=== PATIENT | male | born 1955 | race Caucasian/White ===

== ENCOUNTER 2017-06-29 19:42 | Emergency (ER) | payer BC ==
--- NOTE | 2017-06-29 19:48 | UC ---
Epistaxis Nasal HPI - HPI Summary HPI Summary: 62 YEAR OLD MALE PRESENTS WITH COMPLAINS OF NASAL LACERATION. - History of Current Complaint Stated Complaint: FACIAL INJURY Time Seen by Provider: 06/29/17 19:46 Hx Obtained From: Patient Onset/Duration: Sudden Onset Timing: Constant Severity Initially: Moderate Severity Currently: Moderate Pain Scale Used: 0-10 Numeric - 5 Aggravating Factor(s): Nasal Trauma - Allergies/Home Medications Allergies/Adverse Reactions: Allergies Allergy/AdvReac Type Severity Reaction Status Date / Time Penicillins Allergy Unknown Unknown Verified 01/16/13 18:09 Reaction Details PMH/Surg Hx/FS Hx/Imm Hx Previously Healthy: Yes - Surgical History Surgical History: Yes Surgery Procedure, Year, and Place: HERNIA REPAIR - Social History Substance Use Type: None Review of Systems Constitutional: Negative Skin: Other - NASAL LACERATION Eyes: Negative ENT: Negative Respiratory: Negative Cardiovascular: Negative Gastrointestinal: Negative Genitourinary: Negative Motor: Negative Neurovascular: Negative Musculoskeletal: Negative Neurological: Negative Psychological: Negative All Other Systems Reviewed And Are Negative: Yes Physical Exam Triage Information Reviewed: Yes Eye Exam: Normal ENT Exam: Normal Dental Exam: Normal Neck exam: Normal Neck: Positive: 1 Respiratory Exam: Normal Cardiovascular Exam: Normal Abdominal Exam: Normal Musculoskeletal Exam: Normal Neurological Exam: Normal Psychological Exam: Normal Skin: Positive: Other - NASAL LACERATION Procedures - Laceration/Wound Repair 1 Location: Other - NOSE Description: Linear Laceration/Wound Explored: clean Closure: SteriStrips - < 2.5 CM Epistaxis Nasal Course/Dx - Differential Dx/Diagnosis Provider Diagnoses: NASAL LACERATION Discharge - Discharge Plan Condition: Stable Disposition: HOME Prescriptions: Sulfamethox/Trimethoprim DS* [Bactrim DS 800/160 TAB*] 1 tab PO BID #20 tab Patient Education Materials: Laceration (ED) Referrals: Michi Munoz MD [Primary Care Provider] -
[2017-06-29] MEDS ORDERED: Tetan/Diph/Pertus SYR(Tdap)* 0.5 ML SYR(BOOSTRIX) use SYR IM ONE (20:01)
[2017-06-29 20:32] VITALS: BP 129/81
== END 2017-06-29 20:15 | disposition home or self-care (01) ==
LOC: UCEAST 19:42
DX: S01.21XA Laceration without foreign body of nose, initial encounter (principal); X58.XXXA Exposure to other specified factors, initial encounter; Y93.9 Activity, unspecified; Y92.9 Unspecified place or not applicable; Z23 Encounter for immunization; Z88.0 Allergy status to penicillin
CPT/HCPCS: 12011; 90715; 99202; G0463

== ENCOUNTER 2019-03-31 07:26 | Emergency (ER) | payer BC ==
[2019-03-31 07:40] VITALS: BP 131/79
[2019-03-31] MEDS ORDERED: Tetracaine 0.5% OPTH.SOL 4 ML* 1 DROP BTL RIGHT EYE ONE (07:46)
[2019-03-31] MEDS ORDERED: Fluorescein Sodium TOPICAL* 1 MG TEST STRIP OPHTHALMIC ONE (07:47)
--- NOTE | 2019-03-31 07:47 | UC ---
UC General HPI - History of Current Complaint Chief Complaint: UCEye Stated Complaint: EYE ISSUE Pain Intensity: 7 - Allergy/Home Medications Allergies/Adverse Reactions: Allergies Allergy/AdvReac Type Severity Reaction Status Date / Time Penicillins Allergy Unknown Verified 03/31/19 07:39 Reaction Details Sulfa (Sulfonamide Allergy Hives Verified 03/31/19 07:39 Antibiotics) dust mites Allergy Unknown Uncoded 03/31/19 07:39 Reaction Details Home Medications: Home Medications Tetrahydrozoline HCl [Eye Drops] 1 drop RIGHT EYE ONCE PRN 03/31/19 [History Confirmed 03/31/19] PMH/Surg Hx/FS Hx/Imm Hx - Surgical History Surgical History: Yes Surgery Procedure, Year, and Place: HERNIA REPAIR - Social History Alcohol Use: Daily Substance Use Type: None Smoking Status (MU): Never Smoked Tobacco - Immunization History Most Recent Tetanus Shot: Pt stated not up to date Physical Exam Vital Signs: Initial Vital Signs Temp 98.2 F 03/31/19 07:32 Pulse 64 03/31/19 07:32 Resp 18 03/31/19 07:32 BP 131/79 03/31/19 07:32 Pulse Ox 98 03/31/19 07:32 Discharge - Discharge Plan Referrals: Michi Munoz MD [Primary Care Provider] -
--- NOTE | 2019-03-31 08:19 | UC ---
Eye Complaint HPI - HPI Summary HPI Summary: 64-year-old male who started having some right sided eye pain a few days ago with watery drainage. He denies getting anything in it however did state " maybe I got something in it but I don't know". Today his eye is more painful and extremely light sensitive. He's not had any recent illness nor fever. He states today the pain from his eye actually is giving him a headache. He is unable to tolerate the lights being on in the room. - History of Current Complaint Chief Complaint: UCEye Stated Complaint: EYE ISSUE Time Seen by Provider: 03/31/19 07:59 Hx Obtained From: Patient Onset/Duration: Gradual Onset Timing: Constant Severity Initially: Mild Severity Currently: Moderate Pain Intensity: 7 Location of Injury: Other Character: Dull, Throbbing Aggravating Factor(s): Light - No injury Alleviating Factor(s): Nothing Associated Signs And Symptoms: Positive: Drainage (Clear) - Eyes are watery. - Allergies/Home Medications Allergies/Adverse Reactions: Allergies Allergy/AdvReac Type Severity Reaction Status Date / Time Penicillins Allergy Unknown Verified 03/31/19 07:39 Reaction Details Sulfa (Sulfonamide Allergy Hives Verified 03/31/19 07:39 Antibiotics) dust mites Allergy Unknown Uncoded 03/31/19 07:39 Reaction Details Home Medications: Home Medications Tetrahydrozoline HCl [Eye Drops] 1 drop RIGHT EYE ONCE PRN 03/31/19 [History Confirmed 03/31/19] PMH/Surg Hx/FS Hx/Imm Hx Previously Healthy: Yes Cardiovascular History: Other - Cardiac arrhythmia Cancer History: Other - Skin cancer - Surgical History Surgical History: Yes Surgery Procedure, Year, and Place: HERNIA REPAIR - Social History Alcohol Use: Daily Substance Use Type: None Smoking Status (MU): Never Smoked Tobacco - Immunization History Most Recent Tetanus Shot: Pt stated not up to date Review of Systems All Other Systems Reviewed And Are Negative: Yes Constitutional: Positive: Negative Eyes: Positive: Blurred Vision, Drainage - Watery drainage, blurred vision mostly because of the watering of his eyes and the eye pain., Eye Redness, Photophobia ENT: Positive: Negative Is Patient Immunocompromised?: No Physical Exam Triage Information Reviewed: Yes Appearance: Well-Appearing, Well-Nourished, Pain Distress - More comfortable with the lights off but with the lights on and he has significant photophobia. Vital Signs: Initial Vital Signs Temp 98.2 F 03/31/19 07:32 Pulse 64 03/31/19 07:32 Resp 18 03/31/19 07:32 BP 131/79 03/31/19 07:32 Pulse Ox 98 03/31/19 07:32 Vital Signs Reviewed: Yes Eyes: Positive: Other: - Right conjunctiva and sclera are injected, eyes are watering, PERRLA, EOMI. ENT: Positive: Hearing grossly normal, Pharynx normal, TMs normal, Uvula midline Psychological Exam: Normal Eye Complaint Course/Dx - Course Course Of Treatment: After instillation of tetracaine the right eye was visualized, the globe is intact, no foreign body was noted using the Wood's lamp. Fluorescein was then instilled and there is some uptake at the 12 o'clock position but it does not appear to be a corneal abrasion. After discussion with Dr. Verdugo, I am referring the patient to Dr. Kimball, [facility], and the patient is to go there from here. No foreign bodies were noted under the eyelids. - Differential Dx/Diagnosis Provider Diagnosis: Acute right eye pain Discharge - Sign-Out/Discharge Documenting (check all that apply): Patient Departure All imaging exams completed and their final reports reviewed: No Studies - Discharge Plan Condition: Fair Disposition: HOME Referrals: Michi Munoz MD [Primary Care Provider] - Additional Instructions: Go to 's office from here. - Billing Disposition and Condition Condition: FAIR Disposition: Home
== END 2019-03-31 08:34 | disposition home or self-care (01) ==
LOC: UCEAST 07:26
DX: H57.11 Ocular pain, right eye (principal); Z88.0 Allergy status to penicillin; Z88.2 Allergy status to sulfonamides
CPT/HCPCS: 99211; A9270-GY; G0463

== ENCOUNTER 2019-04-07 07:09 | Emergency (ER) | payer BC ==
[2019-04-07 07:31] VITALS: BP 102/63
--- NOTE | 2019-04-07 07:57 | ED ---
Influenza-Like Illness - HPI Summary HPI Summary: This patient is a 64-year-old male who presents to the urgent care with chief complaint of having intermittent low-grade fevers. The patient has been having these symptoms for the last 3 days. He denies any year pain, denies any sore throat, denies any cough, denies any shortness of breath, denies any abdominal pain, nausea, vomiting, or diarrhea. Patient denies any dysuria or urinary frequency. He reports that approximately a month and a half he removed the tick from his body which he thinks he was reports in 6-8 hours. Patient went to try to [facility] and he was given 200 mg of doxycycline as a prophylactic treatment. Then he developed an upper respiratory tract infection which she result by itself. Now the patient is complaining of the above symptoms. He also reports occasional joint pain different joints. She has taken Tylenol and the symptoms have improved. He has no other complaints. - History of Current Complaint Chief Complaint: UCGeneralIllness Time Seen by Provider: 04/07/19 07:20 - Allergy/Home Medications Allergies/Adverse Reactions: Allergies Allergy/AdvReac Type Severity Reaction Status Date / Time Penicillins Allergy Unknown Verified 04/07/19 07:31 Reaction Details Sulfa (Sulfonamide Allergy Hives Verified 04/07/19 07:31 Antibiotics) dust mites Allergy Unknown Uncoded 04/07/19 07:31 Reaction Details PMH/Surg Hx/FS Hx/Imm Hx Previously Healthy: Yes Endocrine/Hematology History: Denies: Hx Diabetes, Hx Thyroid Disease Cardiovascular History: Reports: Hx Hypertension Denies: Hx Pacemaker/ICD Respiratory History: Denies: Hx Asthma, Hx Chronic Obstructive Pulmonary Disease (COPD) GI History: Denies: Hx Ulcer Sensory History: Denies: Hx Hearing Aid Psychiatric History: Denies: Hx Panic Disorder - Cancer History Cancer Type, Location and Year: skin cancer - Surgical History Surgical History: None Surgery Procedure, Year, and Place: HERNIA REPAIR Infectious Disease History: No Infectious Disease History: Denies: Hx Hepatitis, Hx Human Immunodeficiency Virus (HIV), Traveled Outside the US in Last 30 Days - Family History Known Family History: Positive: Non-Contributory - Social History Alcohol Use: Daily Substance Use Type: Reports: None Smoking Status (MU): Never Smoked Tobacco Review of Systems Positive: Fever Eyes: Negative ENT: Negative Cardiovascular: Negative Respiratory: Negative Gastrointestinal: Negative Genitourinary: Negative Musculoskeletal: Negative Skin: Negative Neurological: Negative Psychological: Normal All Other Systems Reviewed And Are Negative: Yes Physical Exam - Summary Physical Exam Summary: VITAL SIGNS: Reviewed. GENERAL: Patient is a well developed and nourished male who is lying comfortable in the stretcher. Patient is not in any acute respiratory distress. HEAD AND FACE: No signs of trauma. No ecchymosis, hematomas or skull depressions. No sinus tenderness. EYES: PERRLA, EOMI x 2, No injected conjunctiva, no nystagmus. EARS: Hearing grossly intact. Ear canals and tympanic membranes are within normal limits. MOUTH: Oropharynx within normal limits. NECK: Supple, trachea is midline, no adenopathy, no JVD, no carotid bruit, no c- spine tenderness, neck with full ROM. CHEST: Symmetric, no tenderness at palpation LUNGS: Clear to auscultation bilaterally. No wheezing or crackles. CVS: Regular rate and rhythm, S1 and S2 present, no murmurs or gallops appreciated. ABDOMEN: Soft, non-tender. No signs of distention. No rebound no guarding, and no masses palpated. Bowel sounds are normal. EXTREMITIES: FROM in all major joints, no edema, no cyanosis or clubbing. NEURO: Alert and oriented x 3. No acute neurological deficits. Speech is normal and follows commands. SKIN: Dry and warm, no rashes Triage Information Reviewed: Yes Vital Signs On Initial Exam: Initial Vitals Temp Pulse Resp BP Pulse Ox 99.5 F 74 18 102/63 95 04/07/19 07:23 04/07/19 07:23 04/07/19 07:23 04/07/19 07:23 04/07/19 07:23 Vital Signs Reviewed: Yes Diagnostics - Vital Signs Vital Signs Temp Pulse Resp BP Pulse Ox 04/07/19 07:23 99.5 F 74 18 102/63 95 - Laboratory Lab Statement: Any lab studies that have been ordered have been reviewed, and results considered in the medical decision making process. Flu Symptom Course/Dx - Course Assessment/Plan: In the urgent care course the patient is asymptomatic. He doesnt have any fever, denies having any upper respiratory tract infection symptoms or nausea vomiting or diarrhea or UTI symptoms. Therefore, at this point I will send a Lyme titer and will follow-up by the primary care physician. He was given instructions to return to the urgent care or go to the emergency department he develops any other symptoms. The patient understands and agrees. He is hemodynamically stable alert and oriented 3. - Diagnoses Provider Diagnoses: Fever Discharge - Sign-Out/Discharge Documenting (check all that apply): Patient Departure All imaging exams completed and their final reports reviewed: No Studies - Discharge Plan Condition: Stable Disposition: HOME Patient Education Materials: Fever in Adults (ED) Referrals: Michi Munoz MD [Primary Care Provider] - Additional Instructions: Follow-up the test sent to the to the lab. Follow-up with the primary care physician in the next 2-3 days. Go to the emergency department if the symptoms worsen. Increase water intake. - Billing Disposition and Condition Condition: STABLE Disposition: Home
--- NOTE | 2019-04-08 10:35 | ED ---
Progress - Progress Note Progress Note: Lyme screen neg. Course/Dx - Diagnoses Provider Diagnoses: Fever Discharge - Sign-Out/Discharge Documenting (check all that apply): Post-Discharge Follow Up All imaging exams completed and their final reports reviewed: No Studies - Discharge Plan Condition: Stable Disposition: HOME Patient Education Materials: Fever in Adults (ED) Referrals: Michi Munoz MD [Primary Care Provider] - Additional Instructions: Follow-up the test sent to the to the lab. Follow-up with the primary care physician in the next 2-3 days. Go to the emergency department if the symptoms worsen. Increase water intake. - Billing Disposition and Condition Condition: STABLE Disposition: Home
== END 2019-04-07 08:02 | disposition home or self-care (01) ==
LOC: UCEAST 07:09
DX: R50.9 Fever, unspecified (principal); I10 Essential (primary) hypertension; Z88.0 Allergy status to penicillin; Z88.2 Allergy status to sulfonamides
CPT/HCPCS: 36415; 86618; 99211; G0463

== ENCOUNTER 2019-04-07 18:05 | Emergency (ER) | payer BC ==
--- OUTSIDE RECORDS SUMMARY | 2019-04-07 18:29 | XMS REPORT | Continuity of Care Document ---
:1955 External Reference #:[id number] Author Name Chelsy Omer O.D. Address [address] [place] [address] Care Team Providers Name Role Phone Michi Munoz M.D. Primary Care Physician Unavailable Payers Date Identification Numbers Payment Provider Subscriber Effective: Policy Number: [id number] [facility] Teo Lowe 2005 PayID: [id number] [address] [place] [address] Problems Active Problems Provider Date H/O: hypertension Onset: Retained foreign body of eyelid Chelsy Omer O.D. 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 0.3-0.1% Suspension today, then qid Atenolol Jenifer Williamson M.D. 25mg Tablets Aspirin Unknown 81mg Chewtabs Vitamin B-12 Unknown Natural 500mcg Tablets History Medications Ketoconazole Silcoff, Michi, M.D. - 03/30/2019 2% Shampoo Tetrahydrozoline HCL Unknown - 03/30/2019 0.05% Solution Procedures Date Code Description Status 03/31/2019 55817 New Patient Comprehensive Exam Completed 07/23/2007 87210 Determination Of Refractive State Completed 07/23/2007 33228 Est Patient Comprehensive Exam Completed Plan of Treatment 04/02/2019 - Chelsy Omer O.D.H02.811 Retained foreign body in right upper eyelidComments:Use Prednisolone drop right eye 4 x day for 5 days then 2 x day for 5 days then stopFollow up:PRN/ Rec yearly CEE
--- OUTSIDE RECORDS SUMMARY | 2019-04-07 18:29 | XMS REPORT | Continuity of Care Document ---
:1955 External Reference #:[id number] Author Name Chelsy Omer O.D. Address [address] [place] [address] Care Team Providers Name Role Phone Michi Munoz M.D. Primary Care Physician Unavailable Payers Date Identification Numbers Payment Provider Subscriber Effective: Policy Number: [id number] [facility] Teo Lowe 2005 PayID: [id number] [address] [place] [id number] Problems Active Problems Provider Date H/O: hypertension [...] Use Denies Drug Use Smoking Status Reviewed: 03/31/19 Patient has never smoked Medications Active Medications SIG Qnty Indications Ordering Provider Date Tobramycin-Dexamethaso 1 drop right eye 10ml H02.811 Chelsy Omer, 03/31/2019 ne every 2 hours O.D. 0.3-0.1% Suspension today, then qid Atenolol Jenifer Williamson M.D. 25mg Tablets Aspirin Unknown 81mg Chewtabs Vitamin B-12 Unknown Natural 500mcg Tablets History Medications Ketoconazole Michi Munoz M.D. - 03/30/2019 2% Shampoo Tetrahydrozoline HCL Unknown - 03/30/2019 0.05% Solution Procedures Date Code Description Status 07/23/2007 74257 Determination Of Refractive State Completed 07/23/2007 54080 Est Patient Comprehensive Exam Completed Plan of Treatment 03/31/2019 - Chelsy Omer O.D.H02.811 Retained foreign body in right upper eyelidNew Medication:Tobramycin-Dexamethasone 0.3-0.1 % - 1 drop right eye every 2 hours today, then qidComments:Start Tobradex drop right eye every 2 hours while awake today then 4 x day starting tomorrowFollow up:2 day recheck
--- NOTE | 2019-04-07 21:05 | ED ---
HPI Febrile Illness - HPI Summary HPI Summary: Patient is a 64 y/o M presenting to ED with complaints of fever, diffuse joint pain. He reports he has had fever for the past three days. Patient went to [facility]/ and was found to have a fever of 103.9 F. Patient was given Tylenol at around 1700 today. UA was also done, and he was told that he had some blood in his urine. He denies josé hematuria and dysuria. Nausea and vomiting are also denied. He additionally states that he was bit by a tick around 7 weeks ago on February 17, 2019. Patient took only two doses of doxycycline. He denies onset of bullseye rash. Lyme test was sent this morning. He takes atenolol 12.5 mg for arrhythmias as well as baby ASA. 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 On triage, pain is rated 2/10, nothing is noted to aggravate/ alleviate Sx. Home medications and allergies are reviewed. - History of Current Complaint Chief Complaint: EDFever Time Seen by Provider: 04/07/19 20:55 Hx Obtained From: Patient Onset/Duration: Started Days Ago - three days ago, Still Present Timing: Constant, Lasting Days Current Severity: None Pain Intensity: 0 Pain Scale Used: 0-10 Numeric Aggravating Factors: Nothing Alleviating Factors: Nothing Associated Signs and Symptoms: Joint Pain - diffuse, Other: - negative - N/V, dysuria and hematuria - Allergy/Home Medications Allergies/Adverse Reactions: Allergies Allergy/AdvReac Type Severity Reaction Status Date / Time Penicillins Allergy Unknown Verified 04/07/19 18:20 Reaction Details Sulfa (Sulfonamide Allergy Hives Verified 04/07/19 18:20 Antibiotics) dust mites Allergy Unknown Uncoded 04/07/19 07:31 Reaction Details PMH/Surg Hx/FS Hx/Imm Hx Endocrine/Hematology History: Denies: Hx Diabetes, Hx Thyroid Disease Cardiovascular History: Reports: Hx Hypertension Denies: Hx Pacemaker/ICD Respiratory History: Denies: Hx Asthma, Hx Chronic Obstructive Pulmonary Disease (COPD) GI History: Denies: Hx Ulcer Sensory History: Denies: Hx Hearing Aid Psychiatric History: Denies: Hx Panic Disorder - Cancer History Cancer Type, Location and Year: skin cancer - Surgical History Surgery Procedure, Year, and Place: HERNIA REPAIR Infectious Disease History: No Infectious Disease History: Denies: Hx Hepatitis, Hx Human Immunodeficiency Virus (HIV), Traveled Outside the [place] in Last 30 Days - Family History Known Family History: Positive: Cardiac Disease - Social History Alcohol Use: Daily Substance Use Type: Reports: None Smoking Status (MU): Never Smoked Tobacco Review of Systems Positive: Fever Negative: Vomiting, Nausea Negative: dysuria, hematuria Musculoskeletal: Other - positive - diffuse joint pain All Other Systems Reviewed And Are Negative: Yes Physical Exam - Summary Physical Exam Summary: VITAL SIGNS: Reviewed. GENERAL: Patient is a well-developed and nourished male who is lying comfortable in the stretcher. Patient is not in any acute respiratory distress. HEAD AND FACE: No signs of trauma. No ecchymosis, hematomas or skull depressions. No sinus tenderness. EYES: PERRLA, EOMI x 2, No injected conjunctiva, no nystagmus. EARS: Hearing grossly intact. Ear canals and tympanic membranes are within normal limits. MOUTH: Oropharynx within normal limits. NECK: Supple, trachea is midline, no adenopathy, no JVD, no carotid bruit, no c- spine tenderness, neck with full ROM CHEST: Symmetric, no tenderness at palpation LUNGS: Clear to auscultation bilaterally. No wheezing or crackles. CVS: Regular rate and rhythm, S1 and S2 present, no murmurs or gallops appreciated. ABDOMEN: Soft, non-tender. No signs of distention. No rebound no guarding, and no masses palpated. Bowel sounds are normal. EXTREMITIES: FROM in all major joints, no edema, no cyanosis or clubbing. NEURO: Alert and oriented x 3. No acute neurological deficits. Speech is normal and follows commands. SKIN: Dry and warm Triage Information Reviewed: Yes Vital Signs On Initial Exam: Initial Vitals Temp Pulse Resp BP Pulse Ox 99.9 F 82 16 129/69 96 04/07/19 18:12 04/07/19 18:12 04/07/19 18:12 04/07/19 18:12 04/07/19 18:12 Vital Signs Reviewed: Yes Diagnostics - Vital Signs Vital Signs Temp Pulse Resp BP Pulse Ox 04/07/19 20:21 99.3 F 79 16 120/59 95 04/07/19 18:12 99.9 F 82 16 129/69 96 - Laboratory Result Diagrams: 04/07/19 21:34 04/07/19 21:34 Lab Statement: Any lab studies that have been ordered have been reviewed, and results considered in the medical decision making process. - Radiology CXR Radiology Interpretation Completed By: ED Physician Summary of Radiographic Findings: CXR - NAD pending official report. Re-Evaluation - Re-Evaluation First Eval Re-Evaluation Time: 22:24 Comment: Results of labs and tests were discussed with the patient. Patient will be discharged to home and follow up with PCP. Strict return precautions were given. Patient is agreeable with this plan. Course/Dx - Course Course Of Treatment: Patient is a 64 y/o M presenting to ED with complaints of fever, diffuse joint pain. He reports he has had fever for the past three days. Patient went to [facility]/ and was found to have a fever of 103.9 F. Patient was given Tylenol at around 1700 today. UA was also done, and he was told that he had some blood in his urine. He denies josé hematuria and dysuria. Nausea and vomiting are also denied. He additionally states that he was bit by a tick around 7 weeks ago on February 17, 2019. Patient took only two doses of doxycycline. He denies onset of bullseye rash. Lyme test was sent this morning. He takes atenolol 12.5 mg for arrhythmias as well as baby ASA. 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 Physical exam is unremarkable. CXR is NAD. Labs showed Hgb 13.5. Hct 41, glucose 116, lactic acid 0.5, trop 0, CRP 39.82. UA showed 2+ blood, 1+ RBC. During ED course, patient received fluids, Toradol 15 mg IV PUSH and Tylenol 975 mg PO. Results of labs and tests were discussed with the patient. Patient will be discharged to home and follow up with PCP. Strict return precautions were given. Patient is agreeable with this plan. - Diagnoses Provider Diagnoses: Fever, Microscopic hematuria, Viral syndrome Discharge - Sign-Out/Discharge Documenting (check all that apply): Patient Departure - DISCHARGE Patient Received Moderate/Deep Sedation with Procedure: No - Discharge Plan Condition: Stable Disposition: HOME Prescriptions: Ibuprofen TAB* [Motrin TAB* 800 MG] 800 mg PO Q6H PRN #30 tab PRN Reason: Fever/Pain Patient Education Materials: Fever in Adults (ED), Hematuria (ED), Viral Syndrome (ED) Referrals: Michi Munoz MD [Primary Care Provider] - 3 Days Additional Instructions: PLEASE RETURN TO THE ED IMMEDIATELY FOR WORSENING OR CONCERNING SYMPTOMS. FOLLOW UP WITH YOUR PRIMARY CARE PHYSICIAN WITHIN THREE DAYS. GET A REPEAT URINALYSIS WHEN YOUR FEVER HAS SUBSIDED. - Attestation Statements Document Initiated by Scribe: Yes Documenting Scribe: FABRICE SALDANA Provider For Whom Scribe is Documenting (Include Credential): LINDSEY MILLAN MD Scribe Attestation: IFABRICE, scribed for LINDSEY MILLAN MD on 04/08/19 at 0007. Status of Scribe Document: Ready
[2019-04-07] MEDS ORDERED: NS 0.9% 1000 ML** 1,000 ML IV.FLUID IV ONE (21:18)
[2019-04-07] MEDS ORDERED: Ketorolac INJ* 30 MG/ML 1 ML VIAL IV PUSH ONE (21:19)
[2019-04-07] MEDS ORDERED: Acetaminophen TAB* 325 MG PO ONE (21:20)
[2019-04-07 21:45] LABS: ABS Monocytes 0.5 10^3/ul (0-0.8); ABS Neutrophils 3.5 10^3/ul (1.5-7.7); Eosinophil % 0.9 %; Hematocrit 41 % (42-52); Hemoglobin 13.5 g/dL (14.0-18.0); Lymphocyte % 19.8 %; Mean Corpuscular HGB Conc 33 g/dL (31-36); Mean Corpuscular Hemoglobin 30 pg (27-31); Mean Corpuscular Volume 91 fL (80-94); Mean Platelet Volume 9.3 fL (7.4-10.4); Nucleated Red Blood Cells % 0.1; Platelet Count 155 10^3/uL (150-450); Red Cell Distribution Width 14 % (10-15)
[2019-04-07 21:58] LABS: Urine Appearance Clear; Urine Bacteria Absent (Absent); Urine Bilirubin Negative (Negative); Urine Blood 2+ (Negative); Urine Color Straw; Urine Glucose Negative (Negative); Urine Ketones Negative (Negative); Urine Nitrite Negative (Negative); Urine Protein Negative (Negative); Urine Red Blood Cell 1+(3-5/hpf) (Absent); Urine Specific Gravity 1.002 (1.010-1.030); Urine Urobilinogen Negative (Negative); Urine White Blood Cell Absent (Absent)
[2019-04-07 22:04] LABS: Activated Partial Thrombo Time 37.9 seconds (26.0-38.0); INR 1.08 (0.82-1.09)
[2019-04-07 22:06] LABS: Albumin 3.8 g/dL (3.2-5.2); Albumin/Globulin Ratio 1.4 (1-3); BUN/Creatinine Ratio 10.6 (8-20); C Reactive Protein 39.82 mg/L (<8.01); Calcium 9.1 mg/dL (8.6-10.3); EGFR African American 98.1 (>60); EGFR Non-African American 81.1 (>60); Globulin 2.8 g/dL (2-4); Potassium 3.7 mmol/L (3.5-5.0); Total Bilirubin 0.4 mg/dL (0.2-1.0); Total Protein 6.6 g/dL (6.4-8.9)
[2019-04-07 22:44] VITALS: BP 114/70
[2019-04-10 22:46] LABS: Anaplasma phagocytophilum Negative (Negative); Ehrlichia chaffeensis Negative (Negative); Ehrlichia ewingii/canis Negative (Negative); Ehrlichia muris eauclairensis Negative (Negative)
[2019-04-11 00:34] LABS: Ehrlichia chaffeensis IgG AB <1:64 titer (<1:64)
== END 2019-04-07 22:43 | disposition home or self-care (01) ==
LOC: ED 18:05
DX: B34.9 Viral infection, unspecified (principal); R31.29 Other microscopic hematuria
CPT/HCPCS: 36415; 71045; 80053; 81003; 81015; 82550; 83605; 84484; 85025; 85379; 85610; 85730; 86140; 86618; 86666; 87040; 87798; 96374; 99282; A9270-GY; J1885